=== PATIENT | male | born 1970 | race Caucasian/White ===

== ENCOUNTER 2016-11-11 20:03 | Emergency (ER) | payer OTHER ==
--- NOTE | 2016-11-11 20:30 | ER Document Report ---
ED Medical Screen (RME) - General Stated Complaint: RIGHT SIDED WEAKNESS Notes: 46 yo male brought to ED by EMS c/o right sided numbness/burning since 6:45 tonight. no facial droop, no slurred speech, no motor weakness noted by EMS but on evaluation at triage, pt noted to have right sided upper and lower extremity weakness, slurred speech with some expressive aphasia. hx/o prediabetes. BS 180 TRAVEL OUTSIDE OF THE [place] IN LAST 30 DAYS: No - Related Data Allergies/Adverse Reactions: No Known Allergies Allergy (Unverified 06/29/15 07:57) Past Medical History Endocrine Medical History: Reports: Hx Diabetes Mellitus Type 2 Physical Exam - Vital signs Vitals: Temp Pulse Resp BP Pulse Ox 97.9 F 104 H 24 H 176/80 H 99 11/11/16 20:51 11/11/16 20:51 11/11/16 20:51 11/11/16 20:51 11/11/16 20:51 Course - Vital Signs Vital signs: Temp Pulse Resp BP Pulse Ox 97.9 F 104 H 24 H 176/80 H 99 11/11/16 20:51 11/11/16 20:51 11/11/16 20:51 11/11/16 20:51 11/11/16 20:51
[2016-11-11 21:55] LABS: ABSOLUTE BASOPHILS # (AUTO) 0.1 10^3/uL (0.0-0.2); ABSOLUTE EOSINOPHILS # (AUTO) 0.2 10^3/uL (0.0-0.6); ABSOLUTE LYMPHOCYTES (AUTO) 1.5 10^3/uL (0.5-4.7); ABSOLUTE MONOCYTES (AUTO) 0.6 10^3/uL (0.1-1.4); ABSOLUTE NEUT (AUTO) 8.1 10^3/uL (1.7-8.2); BASOPHILS % (AUTO) 0.9 % (0-2); EOSINOPHILS % (AUTO) 1.7 % (0-6); HEMATOCRIT 41.8 % (37.9-51.0); HEMOGLOBIN 13.4 g/dL (13.5-17.0); HGB HCT DIFFERENCE -1.6; LYMPHOCYTES % (AUTO) 14.1 % (13-45); MEAN CORPUSCULAR HEMOGLOBIN 26.3 pg (27.0-33.4); MEAN CORPUSCULAR HGB CONC 32.1 g/dL (32.0-36.0); MEAN CORPUSCULAR VOLUME 82 fl (80-97); MONOCYTES % (AUTO) 6.1 % (3-13); RED CELL DISTRIBUTION WIDTH 16.7 % (11.5-14.0); SEGMENTED NEUTROPHILS % (AUTO) 77.2 % (42-78); WHITE BLOOD COUNT 10.5 10^3/uL (4.0-10.5)
[2016-11-11 22:02] LABS: PARTIAL THROMBOPLASTIN TIME 26.3 SEC (23.5-35.8)
[2016-11-11 22:04] LABS: PROTHROMBIN TIME 13.2 SEC (11.4-15.4)
[2016-11-11 22:14] LABS: ALANINE AMINOTRANSFERASE 48 U/L (21-72); ALBUMIN 3.6 g/dL (3.5-5.0); ALKALINE PHOSPHATASE 101 U/L (38-126); ANION GAP 10 (5-19); ASPARTATE AMINO TRANSFERASE 29 U/L (17-59); BILIRUBIN,TOTAL 0.5 mg/dL (0.2-1.3); BLOOD UREA NITROGEN 16 mg/dL (7-20); CALCIUM 9.7 mg/dL (8.4-10.2); CARBON DIOXIDE 31 mmol/L (22-30); CHLORIDE 101 mmol/L (98-107); CREATINE KINASE 100 U/L (55-170); GLUCOSE 169 mg/dL (75-110); POTASSIUM 4.5 mmol/L (3.6-5.0); SODIUM 141.7 mmol/L (137-145)
--- NOTE | 2016-11-11 22:20 | ER Document Report ---
ED Neuro Symptoms/Deficit - General Time seen by provider: 22:25 Mode of Arrival: Ambulatory Information source: Patient Notes: Patient is a 46 year old male presenting to the emergency department with stroke like symptoms. Patient states he was driving home from [place] when he dropped his drink from his right hand. Patient states he then wasn't able to control the petal with his right foot. Patient states he then called his friend who called EMS and arrived to help. Patient's friend states that the patient had right sided weakness in the upper and lower extremities. Patient did not have any facial droop or slurred speech. Patient had difficulty ambulating due to his weakness in his right side. Patient states that he was unable to hold on to things with his right hand. Patient denies any headache, blurry vision, rectal bleeding, or being on any blood thinners. Patient denies any cardiac medical history. Patient is obese and is pre-diabetic. Patient states the last time he saw a doctor he was here in the ED and had his gallbladder removed which was 2 years ago. Patient states [facility]. Patient has no known allergies. TRAVEL OUTSIDE OF THE [place] IN LAST 30 DAYS: No - HPI Patient complains to provider of: Difficulty walking, Weakness Onset: Other - see HPI note Baseline Cognitive: Alert, oriented X 3 Baseline Gait: Walks w/o assistance Alert To: Name/Voice Patient Orientation: Person, Place, Time, Events New weakness: RUE, RLE Associated symptoms: denies: Headache <BENNETT LAMBERT - Last Filed: 11/18/16 06:17> <MONIKA ESPINAL - Last Filed: 11/18/16 22:49> - General Chief Complaint: Weakness Stated Complaint: RIGHT SIDED WEAKNESS - Related Data Allergies/Adverse Reactions: No Known Allergies Allergy (Unverified 06/29/15 07:57) Past Medical History - General Information source: Patient - Social History Smoking Status: Never Smoker Cigarette use (# per day): No Chew tobacco use (# tins/day): No Frequency of alcohol use: None Drug Abuse: None Family History: None Patient has suicidal ideation: No Patient has homicidal ideation: No Endocrine Medical History: Reports: Hx Diabetes Mellitus Type 2 Past Surgical History: Reports: Hx Cholecystectomy - 2014 <BENNETT LAMBERT - Last Filed: 11/18/16 06:17> Review of Systems - Review of Systems Constitutional: No symptoms reported EENT: No symptoms reported Cardiovascular: No symptoms reported Respiratory: No symptoms reported Gastrointestinal: No symptoms reported Genitourinary: No symptoms reported Male Genitourinary: No symptoms reported Musculoskeletal: See HPI Skin: No symptoms reported Hematologic/Lymphatic: No symptoms reported Neurological/Psychological: See HPI, Weakness. denies: Headaches -: Yes All other systems reviewed and negative <BENNETT LAMBERT - Last Filed: 11/18/16 06:17> Physical Exam - Vital signs Vitals: Temp Pulse Resp BP Pulse Ox 97.9 F 104 H 24 H 176/80 H 99 11/11/16 20:51 11/11/16 20:51 11/11/16 20:51 11/11/16 20:51 11/11/16 20:51 Interpretation: Hypertensive, Tachycardic - General General appearance: Alert In distress: Mild - HEENT Head: Normocephalic, Atraumatic, Other - no facial weakness or droop Eyes: Normal Pupils: PERRL Mucous membranes: Moist Pharynx: Normal - tongue midline - Respiratory Respiratory status: No respiratory distress Chest status: Nontender Breath sounds: Normal Chest palpation: Normal - Cardiovascular Rhythm: Regular Heart sounds: Normal auscultation Murmur: No - Abdominal Inspection: Morbidly Obese Distension: No distension Bowel sounds: Normal Tenderness: Nontender Organomegaly: No organomegaly - Back Back: Normal, Nontender - Extremities General upper extremity: Other - 1/4 strength in the right upper extremity; 4/4 strength in the left upper extremity General lower extremity: Other - 1/4 strength in the right lower extremity; 4/4 strength in the left lower extremity - Neurological Neuro grossly intact: Yes Cognition: Normal Orientation: AAOx4 Juan Coma Scale Eye Opening: Spontaneous Juan Coma Scale Verbal: Oriented Juan Coma Scale Motor: Obeys Commands Tiona Coma Scale Total: 15 Speech: Normal - no slurred speech - Psychological Associated symptoms: Normal affect, Normal mood - Skin Skin Temperature: Warm Skin Moisture: Dry <BENNETT LAMBERT - Last Filed: 11/18/16 06:17> - Vital signs Vitals: Temp Pulse Resp BP Pulse Ox 97.9 F 104 H 24 H 176/80 H 99 11/11/16 20:51 11/11/16 20:51 11/11/16 20:51 11/11/16 20:51 11/11/16 20:51 <TELLO ESPINALMY - Last Filed: 11/18/16 22:49> Course - Vital Signs Vital signs: Temp Pulse Resp BP Pulse Ox 97.9 F 108 H 20 169/78 H 98 11/11/16 20:55 11/11/16 21:46 11/11/16 21:46 11/11/16 21:46 11/11/16 21:46 - Laboratory Result Diagrams: 11/11/16 21:38 11/11/16 21:38 Laboratory results interpreted by me: 11/11/16 11/11/16 21:38 21:38 Hgb 13.4 L MCH 26.3 L RDW 16.7 H Carbon Dioxide 31 H Glucose 169 H - Consults [facility] Time consulted: 20:20 Reason for consultation: 11/11/16 22:20 Contacted [facility] for possible consult for patient 11/11/16 22:[address] Michael Wilkes, recommends Alteplase and would like the patient to be transferred to [facility]. <BENNETT LAMBERT - Last Filed: 11/18/16 06:17> - Re-evaluation Re-evalutation: 11/11/16 22:22 I personally performed the services described in the documentation, reviewed and edited the documentation which was dictated to my scribe in my presence, and it accurately records my words and actions. Chart picked up from the rack at 25/09/09. Right-sided weakness and numbness immediate assessment at the bedside patient with persistent neurological deficits that started 645 stroke alert called at that time. Patient meets criteria for thrombolytics called [facility] awaiting a callback. 11/11/16 22:54 Patient presents emergency Department through the triage area with right-sided weakness and numbness stroke protocol was not called patient went to CT scan are negative acute CT of the head immediately upon taking at the chart the patient has dense weakness in the right upper extremity right lower extremity negative CT scan no contraindications to thrombolytics. I contacted the neurologist physician interventional cardiologist and [facility] who stated to give the patient thrombolytics at this time. Patient had onset of symptoms at 6:[address] Went over the risks benefits no acute contraindication patient understands the risk and benefit. Neurologist recommended emergent transfer to the helicopter for CT of the head and neck. Patient police justice thrombolic some the ED. Pressure 176/80 acute findings on the EKG. Immediately identified that the patient has one out of 4 strength in the right upper extremity 1 out of 4 strength in the right lower extremity with dense weakness. Contacted Dr. Cummings at [facility] neurology who recommended I give the patient thrombolytics and transfer via helicopter emergently to the ED for CT of the head and neck. Patient administered thrombolytics in the ED 11/11/16 22:59 Helicopter on-site patient reassessed improvement with right upper extremity weakness able to touch his nose now 2 out of 4 in the right upper extremity able to move his leg now 2 out of 4 in the right lower extremity - Vital Signs Vital signs: Temp Pulse Resp BP Pulse Ox 97.9 F 108 H 20 169/78 H 98 11/11/16 20:55 11/11/16 21:46 11/11/16 21:46 11/11/16 21:46 11/11/16 21:46 - Laboratory Result Diagrams: 11/11/16 21:38 11/11/16 21:38 Laboratory results interpreted by me: 11/11/16 11/11/16 21:38 21:38 Hgb 13.4 L MCH 26.3 L RDW 16.7 H Carbon Dioxide 31 H Glucose 169 H <MONIKA ESPINAL - Last Filed: 11/18/16 22:49> Critical Care Note - Critical Care Note Total time excluding time spent on procedures (mins): 45 <MONIKA ESPINAL - Last Filed: 11/18/16 22:49> ED [facility]/Exc Criteria ED NIH Stroke Scale Discharge <BENNETT LAMBERT - Last Filed: 11/18/16 06:17> <MONIKA ESPINAL - Last Filed: 11/18/16 22:49> - Discharge Disposition: [facility] Scribe Documentation - Scribe Written by Cecy:: Bennett Lambert 11/11/16 22:44 acting as scribe for :: Dominic <BENNETT LAMBERT - Last Filed: 11/18/16 06:17>
[2016-11-11 22:25] LABS: CREATINE KINASE MB 0.76 ng/mL (<4.55); TROPONIN I 0.016 ng/mL
[2016-11-11] MEDS ORDERED: ALTEPLASE INJ 100 MG VIAL IV ONE ×2 (22:30→22:35)
[2016-11-11 23:30] VITALS: BP 158/87
--- NOTE | 2016-11-12 10:22 | EKG REPORT ---
SEVERITY:- BORDERLINE ECG - SINUS TACHYCARDIA BORDERLINE T WAVE ABNORMALITIES : Confirmed by: Max Wilder 12-Nov-2016 10:21:34
--- NOTE | 2016-12-07 11:27 | ER Document Report ---
Doctor's Note Notes: 12/07/16 11:27 diagnosis 1. acute cva requiring thrombolytics critical care time 60 minutes exclusionary of procedures
== END 2016-11-11 23:14 | disposition short-term general hospital (02) ==
LOC: ER 20:03
DX: I63.9 Cerebral infarction, unspecified (principal); G81.91 Hemiplegia, unspecified affecting right dominant side; R20.0 Anesthesia of skin; E66.9 Obesity, unspecified; Z68.43 Body mass index [BMI] 50.0-59.9, adult; E11.9 Type 2 diabetes mellitus without complications; R00.0 Tachycardia, unspecified
CPT/HCPCS: 93005; 99291; 96365; 36415; 82553; 82962; 82550; 85025; 85610; 85730; 80053; 84484; 71010; 70450; 93010; J2997